=== PATIENT | male | born 1985 | race Caucasian/White ===

== ENCOUNTER 2018-01-15 09:28 | Emergency (ER) | payer MEDICAID, OTHER ==
[2018-01-15 09:43] VITALS: BMI 23.0
[2018-01-15 10:36] VITALS: RESP 18; O2SAT 98
--- NOTE | 2018-01-15 10:53 | RAD ---
HISTORY: chest pain for 2-3 weeks COMPARISON: 09/04/2009 TECHNIQUE: Chest PA and lateral FINDINGS: LUNGS: No active pulmonary disease. PLEURA: No significant pleural effusion identified. No pneumothorax apparent. CARDIOVASCULAR: Normal. OSSEOUS STRUCTURES: No significant abnormalities. VISUALIZED UPPER ABDOMEN: Normal. OTHER FINDINGS: None. IMPRESSION: No active disease.
[2018-01-15 10:55] LABS: BASO # 0.1 K/uL (0.0-0.2); BASO % 0.4 % (0.0-2.0); EOS # 0.2 K/uL (0.0-0.7); EOS % 1.7 % (0.0-4.0); HEMOGLOBIN 16.1 g/dL (12.0-18.0); LYMPH # 2.6 K/uL (1.0-4.3); LYMPH % 17.8 % (20.0-40.0); MEAN CELL VOLUME 93.9 fl (80.0-94.0); MEAN CORPUSCULAR HEMOGLOBIN 32.3 pg (27.0-31.0); MEAN CORPUSCULAR HGB CONC 34.5 g/dL (33.0-37.0); MEAN PLATELET VOLUME 8.6 fl (7.2-11.7); MONO # 0.8 K/uL (0.0-0.8); MONO % 5.8 % (0.0-10.0); NEUT # 10.8 K/uL (1.8-7.0); NEUT % 74.3 % (50.0-75.0); NRBC % 0.2 % (0.0-0.0); RBC 4.99 Mil/uL (4.40-5.90); RED CELL DISTRIBUTION WIDTH 12.9 % (11.5-14.5); WHITE BLOOD COUNT 14.5 K/uL (4.8-10.8)
[2018-01-15 11:07] LABS: BLOOD UREA NITROGEN 7 mg/dl (9-20); CALCIUM 9.8 mg/dL (8.4-10.2); GFR AFRICAN-AMERICAN > 60; GFR NON-AFRICAN AMERICAN > 60
--- NOTE | 2018-01-15 11:08 | ED PDOC ---
HPI: Chest Pain Time Seen by Provider: 01/15/18 10:07 Chief Complaint (Nursing): Chest Pain Chief Complaint (Provider): Chest Pain, Cough History Per: Patient History/Exam Limitations: no limitations Onset/Duration Of Symptoms: Days (x 2 weeks) Current Symptoms Are (Timing): Still Present Additional Complaint(s): Carlos is a 32 y/o male who presents to the ED complaining of chest pain and cough for the past two weeks. Patient has not seen a doctor because he does not have insurance and hasn't had a check-up in 4 years. He states his mother had a URI that started around the same time, got better and then worsened again. Patient describes the pain as sharp, tingling across the chest but mostly on the left side and a sensation of a bruise on the left chest. PMD: None Past Medical History Reviewed: Historical Data, Nursing Documentation, Vital Signs Vital Signs: Last Vital Signs Temp 98.6 F 01/15/18 10:32 Pulse 70 01/15/18 11:14 Resp 18 01/15/18 10:32 BP 159/94 H 01/15/18 10:32 Pulse Ox 98 01/15/18 11:14 - Medical History PMH: No Chronic Diseases - Family History Family History: States: No Known Family Hx - Social History Current smoker - smoking cessation education provided: Yes (1/2 pack a day) - Home Medications Home Medications: Ambulatory Orders Medication Instructions Recorded Azithromycin [Z-Gibran] 250 mg PO DAILY #6 tab 01/15/18 Naproxen [Naprosyn] 500 mg PO BID PRN #20 tablet 01/15/18 - Allergies Allergies/Adverse Reactions: Allergies Allergy/AdvReac Type Severity Reaction Status Date / Time No Known Allergies Allergy Verified 08/20/15 23:51 Review of Systems ROS Statement: Except As Marked, All Systems Reviewed And Found Negative Constitutional: Negative for: Fever, Chills Cardiovascular: Positive for: Chest Pain (sharp) Respiratory: Positive for: Cough Neurological: Positive for: Other (tingling in fingers b/l) Physical Exam - Reviewed Nursing Documentation Reviewed: Yes Vital Signs Reviewed: Yes - Physical Exam Appears: Positive for: No Acute Distress Head Exam: Positive for: ATRAUMATIC, NORMOCEPHALIC Skin: Positive for: Normal Color, Warm, Dry. Negative for: Rash Neck: Positive for: Normal, Painless ROM, Supple Cardiovascular/Chest: Positive for: Regular Rate, Rhythm, Other (palpitation of chest wall worse on palpation). Negative for: Murmur Respiratory: Positive for: Normal Breath Sounds. Negative for: Respiratory Distress Gastrointestinal/Abdominal: Positive for: Normal Exam, Soft. Negative for: Tenderness Neurologic/Psych: Positive for: Alert (speaking full sentences), Oriented, Mood/ Affect (anxious). Negative for: Motor/Sensory Deficits - Laboratory Results Result Diagrams: 01/15/18 10:51 01/15/18 10:51 - ECG ECG: Positive for: Interpreted By Me, Viewed By Me ECG Rhythm: Positive for: Sinus Rhythm Interpretation Of ECG: normal axis, no acute changes Rate: 70 (bpm) O2 Sat by Pulse Oximetry: 98 (RA) Pulse Ox Interpretation: Normal Medical Decision Making Medical Decision Making: Time: 10:35 Initial Impression: Chest Pain Initial Plan: --EKG --BMP --Troponin --CBC --Chest XR Time: 10:52 CHEST XR FINDINGS: LUNGS: No active pulmonary disease. PLEURA: No significant pleural effusion identified. No pneumothorax apparent. CARDIOVASCULAR: Normal. OSSEOUS STRUCTURES: No significant abnormalities. VISUALIZED UPPER ABDOMEN: Normal. OTHER FINDINGS: None. IMPRESSION: No active disease. Scribe Attestation: Documented by Zay Richardson, acting as a scribe for Dr. Peggy Martinez MD. Provider Scribe Attestation: All medical record entries made by the Scribe were at my direction and personally dictated by me. I have reviewed the chart and agree that the record accurately reflects my personal performance of the history, physical exam, medical decision making, and the department course for this patient. I have also personally directed, reviewed, and agree with the discharge instructions and disposition. workup significant only for wbc 14K. Chest x-ray is normal. EKG is normal. will discharge with diagnosis of bronchitis with chest wall pain Disposition - Clinical Impression Clinical Impression: Chest wall pain, Bronchitis - Patient ED Disposition Is Patient to be Admitted: No Doctor Will See Patient In The: Office Counseled Patient/Family Regarding: Diagnosis, Need For Followup, Rx Given - Disposition Referrals: Mathieu Guerra MD [Staff Provider] - Disposition: Routine/Home Disposition Time: 11:05 Condition: STABLE Prescriptions: Azithromycin [Z-Gibran] 250 mg PO DAILY #6 tab Naproxen [Naprosyn] 500 mg PO BID PRN #20 tablet PRN Reason: Pain, Moderate (4-7) Instructions: Acute Bronchitis (ED), Chest Wall Pain (ED) Forms: [employer] (Uzbek) - POA Present On Arrival: None
[2018-01-15 11:40] VITALS: BP 128/76; PULSE 78; TEMP 97.6
--- NOTE | 2018-01-15 14:04 | CARD ---
APPROVED REPORT EKG Measurement Heart [id number] [id number] <Conclusion> Normal sinus rhythm Rightward axis Borderline ECG
== END 2018-01-15 11:40 | disposition home or self-care (01) ==
LOC: H.ER 09:28
DX: J40 Bronchitis, not specified as acute or chronic (principal); F17.210 Nicotine dependence, cigarettes, uncomplicated

== ENCOUNTER 2018-01-25 21:55 | Emergency (ER) | payer OTHER ==
[2018-01-25 21:55] VITALS: BMI 23.0
[2018-01-25 22:10] VITALS: O2SAT 99
--- NOTE | 2018-01-25 23:49 | ED PDOC ---
HPI: General Adult Time Seen by Provider: 01/25/18 22:38 Chief Complaint (Nursing): Chest Pain History Per: Patient Additional Complaint(s): Pt. states for the past 2 weeks he's had intermittent L sided chest pain radiating to his neck, L arm, and L upper back. Reports that he was seen here 2 weeks ago for same and had blood work and CXR which were normal. Pt. then f/u with [facility] for further evaluation. Pt. states he was given instructions on how to meditate. Pt. admits to feeling anxious for the past several weeks. States he has taken Klonopin and Xanax in the past for anxiety. 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 Denies hemoptysis, hx of DVT or PE, hormonal therapy, recent prolonged immobilization of limbs, cough, fever, SI/HI, hallucinations, rash. Past Medical History Reviewed: Historical Data, Nursing Documentation, Vital Signs Vital Signs: Last Vital Signs Temp 98.6 F 01/25/18 22:04 Pulse 56 L 01/26/18 00:01 Resp 19 01/26/18 00:01 BP 142/94 H 01/26/18 00:01 Pulse Ox 99 01/26/18 03:30 - Surgical History Surgical History: No Surg Hx - Family History Family History: States: No Known Family Hx Denies: [place] - Living Arrangements Living Arrangements: With Family - Social History Current smoker - smoking cessation education provided: No Drugs: Denies - Home Medications Home Medications: Ambulatory Orders Medication Instructions Recorded Azithromycin [Z-Gibran] 250 mg PO DAILY #6 tab 01/15/18 Naproxen [Naprosyn] 500 mg PO BID PRN #20 tablet 01/15/18 - Allergies Allergies/Adverse Reactions: Allergies Allergy/AdvReac Type Severity Reaction Status Date / Time No Known Allergies Allergy Verified 01/25/18 22:04 Review of Systems ROS Statement: Except As Marked, All Systems Reviewed And Found Negative Cardiovascular: Positive for: Chest Pain Psych: Positive for: Anxiety Physical Exam - Physical Exam Appears: Positive for: Well, Non-toxic, No Acute Distress Skin: Positive for: Normal Color, Warm. Negative for: Rash Eye Exam: Positive for: Normal appearance ENT: Positive for: Normal ENT Inspection Neck: Positive for: Normal, Painless ROM Cardiovascular/Chest: Positive for: Regular Rate, Rhythm Respiratory: Positive for: CNT, Normal Breath Sounds Gastrointestinal/Abdominal: Positive for: Normal Exam, Soft. Negative for: Tenderness Back: Positive for: Normal Inspection. Negative for: L CVA Tenderness, R CVA Tenderness Extremity: Positive for: Normal ROM Neurologic/Psych: Positive for: Alert, Oriented, Mood/Affect (pt. appears anxious but is cooperative) - Laboratory Results Result Diagrams: 01/25/18 23:58 01/25/18 23:58 - ECG O2 Sat by Pulse Oximetry: 99 - Progress ED Course And Treament: Labs, CXR ordered. EKG: SR at [address]-T wave changes. Pt. evaluated by crisis and cleared pt. for discharge at request of Dr. Diana. Disposition - Clinical Impression Clinical Impression: Anxiety - Patient ED Disposition Is Patient to be Admitted: No - Disposition Disposition: Routine/Home Disposition Time: 03:00 Condition: STABLE Instructions: Anxiety, Adult (DC) Forms: [employer] (Belarusian)
[2018-01-26 00:11] LABS: BASO # 0.1 K/uL (0.0-0.2); BASO % 0.5 % (0.0-2.0); EOS # 0.3 K/uL (0.0-0.7); EOS % 2.5 % (0.0-4.0); HEMOGLOBIN 16.5 g/dL (12.0-18.0); LYMPH # 3.8 K/uL (1.0-4.3); LYMPH % 29.6 % (20.0-40.0); MEAN CELL VOLUME 95.1 fl (80.0-94.0); MEAN CORPUSCULAR HEMOGLOBIN 32.4 pg (27.0-31.0); MEAN CORPUSCULAR HGB CONC 34.1 g/dL (33.0-37.0); MEAN PLATELET VOLUME 8.9 fl (7.2-11.7); NEUT # 7.7 K/uL (1.8-7.0); NEUT % 59.4 % (50.0-75.0); NRBC % 0.1 % (0.0-0.0); RBC 5.07 Mil/uL (4.40-5.90); RED CELL DISTRIBUTION WIDTH 13.3 % (11.5-14.5); WHITE BLOOD COUNT 12.9 K/uL (4.8-10.8)
[2018-01-26 00:22] LABS: URINE BACTERIA RARE (<OCC); URINE BILIRUBIN NEGATIVE (NEGATIVE); URINE BLOOD NEGATIVE (NEGATIVE); URINE CLARITY CLEAR (Clear); URINE COLOR COLORLESS (YELLOW); URINE GLUCOSE (UA) NEG (Normal); URINE LEUKOCYTE ESTERASE NEG Leu/uL (Negative); URINE NITRATE NEGATIVE (NEGATIVE); URINE PROTEIN NEGATIVE (NEGATIVE); URINE UROBILINOGEN 0.2-1.0 mg/dL (0.2-1.0)
[2018-01-26 00:34] LABS: ALB/GLOB RATIO 1.4 (1.0-2.1); ALBUMIN 4.6 g/dL (3.5-5.0); ALT/SGPT 55 U/L (21-72); AST/SGOT 27 U/L (17-59); BLOOD UREA NITROGEN 9 mg/dl (9-20); CALCIUM 9.8 mg/dL (8.4-10.2); GFR AFRICAN-AMERICAN > 60; GFR NON-AFRICAN AMERICAN > 60
[2018-01-26 00:34] LABS: BARBITURATES, UR NEGATIVE (NEGATIVE); BENZODIAZEPINES, UR NEGATIVE (NEGATIVE); OPIATES, UR NEGATIVE (NEGATIVE); PHENCYCLIDINE, UR NEGATIVE (NEGATIVE)
[2018-01-26 04:13] VITALS: BP 140/83; PULSE 65; RESP 18; TEMP 98
--- NOTE | 2018-01-26 09:09 | RAD ---
HISTORY: chest pain COMPARISON: Chest radiographs 01/15/2018. TECHNIQUE: Chest PA and lateral FINDINGS: LUNGS: No active pulmonary disease. PLEURA: No significant pleural effusion identified. No pneumothorax apparent. CARDIOVASCULAR: Normal. OSSEOUS STRUCTURES: No significant abnormalities. VISUALIZED UPPER ABDOMEN: Normal. OTHER FINDINGS: None. IMPRESSION: No acute cardiopulmonary disease appreciated.
--- NOTE | 2018-01-26 14:50 | CARD ---
APPROVED REPORT EKG Measurement Heart [id number] [id number] <Conclusion> Normal sinus rhythm Rightward axis Borderline ECG
== END 2018-01-26 04:08 | disposition home or self-care (01) ==
LOC: H.ER 21:55
DX: F41.9 Anxiety disorder, unspecified (principal); R07.89 Other chest pain

== ENCOUNTER 2018-01-28 14:22 | Emergency (ER) | payer OTHER ==
[2018-01-28 14:22] VITALS: BMI 23.0
[2018-01-28 14:42] VITALS: BP 165/100; PULSE 74; RESP 16; TEMP 99.2; O2SAT 100
--- NOTE | 2018-01-28 16:59 | ED PDOC ---
HPI: General Adult Time Seen by Provider: 01/28/18 16:01 Chief Complaint (Nursing): ENT Problem Chief Complaint (Provider): Neck Pain History Per: Patient History/Exam Limitations: no limitations Onset/Duration Of Symptoms: Days (x3) Current Symptoms Are (Timing): Still Present Additional Complaint(s): 32 year old male with a past medical history of anxiety presents to the ER with evaluation of neck pain onset 3 days ago. Patient reports previous visits for chest pain ongoing for two weeks and left lower dental pain. He claims to have felt better after taking Z-gibran. He denies any vomiting, nausea, diarrhea, fever , chills, shortness of breath, or abdominal pain. Patient offers no other medical complaints at this time. PMD: none provided Past Medical History Reviewed: Historical Data, Nursing Documentation, Vital Signs Vital Signs: Last Vital Signs Temp 99.2 F 01/28/18 14:38 Pulse 74 01/28/18 14:38 Resp 16 01/28/18 14:38 BP 165/100 H 01/28/18 14:38 Pulse Ox 100 01/28/18 17:22 - Medical History PMH: Anxiety Denies: Diabetes, Hepatitis, HIV, HTN, Seizures, Sexually Transmitted Disease - Surgical History Surgical History: No Surg Hx - Family History Family History: Denies: [place] - Home Medications Home Medications: Ambulatory Orders Medication Instructions Recorded Azithromycin [Z-Gibran] 250 mg PO DAILY #6 tab 01/15/18 Naproxen [Naprosyn] 500 mg PO BID PRN #20 tablet 01/15/18 Amoxicillin/Clavulanate [Augmentin 1 tab PO BID #20 tab 01/28/18 875 MG-125 MG] - Allergies Allergies/Adverse Reactions: Allergies Allergy/AdvReac Type Severity Reaction Status Date / Time No Known Allergies Allergy Verified 01/28/18 14:38 Review of Systems ROS Statement: Except As Marked, All Systems Reviewed And Found Negative Constitutional: Negative for: Fever, Chills Cardiovascular: Positive for: Chest Pain Respiratory: Negative for: Shortness of Breath Gastrointestinal: Negative for: Nausea, Vomiting, Abdominal Pain, Diarrhea Musculoskeletal: Positive for: Neck Pain Physical Exam - Reviewed Nursing Documentation Reviewed: Yes Vital Signs Reviewed: Yes - Physical Exam Appears: Positive for: Non-toxic, No Acute Distress Head Exam: Positive for: ATRAUMATIC, NORMAL INSPECTION, NORMOCEPHALIC Skin: Positive for: Normal Color, Warm, Dry Eye Exam: Positive for: Normal appearance ENT: Positive for: Normal ENT Inspection Neck: Positive for: Normal, Painless ROM, Supple Cardiovascular/Chest: Positive for: Regular Rate, Rhythm. Negative for: Murmur Respiratory: Positive for: Normal Breath Sounds. Negative for: Respiratory Distress Extremity: Positive for: Normal ROM. Negative for: Deformity, Swelling Neurologic/Psych: Positive for: Alert, Oriented - ECG O2 Sat by Pulse Oximetry: 100 (RA) Pulse Ox Interpretation: Normal Medical Decision Making Medical Decision Making: Time: 16:50 Upon provider evaluation patient is medically stable, and requires no further treatment in the ED at this time. Patient will be discharged home with Rx for Augmentin. Counseling was provided and all questions were answered regarding diagnosis. There is agreement to discharge plan. Return if symptoms persist or worsen. Scribe Attestation: Documented by Jerica Garcia, acting as a scribe for Sierra Muller PA-C Provider Scribe Attestation: All medical record entries made by the Scribe were at my direction and personally dictated by me. I have reviewed the chart and agree that the record accurately reflects my personal performance of the history, physical exam, medical decision making, and the department course for this patient. I have also personally directed, reviewed, and agree with the discharge instructions and disposition. Disposition - Clinical Impression Clinical Impression: Pain, dental - Patient ED Disposition Is Patient to be Admitted: No - Disposition Disposition: Routine/Home Disposition Time: 16:59 Condition: GOOD Prescriptions: Amoxicillin/Clavulanate [Augmentin 875 MG-125 MG] 1 tab PO BID #20 tab Instructions: Dental Pain (DC) Forms: [employer] (Djiboutian)
== END 2018-01-28 17:10 | disposition home or self-care (01) ==
LOC: H.ER 14:22
DX: K08.89 Other specified disorders of teeth and supporting structures (principal); F41.9 Anxiety disorder, unspecified